=== PATIENT | male | born 1945 | race Two or more races ===

== ENCOUNTER → 2017-10-11 | Outpatient (CLI) | payer OTHER | END | disposition home or self-care (01) | LOC: RAD 15:43 | DX: R05 Cough (principal) ==

== ENCOUNTER 2018-10-28 08:22 | Outpatient (CLI) | payer OTHER | END 2018-10-28 08:34 | disposition home or self-care (01) | LOC: SONOGRAMA 08:22 | DX: N18.2 Chronic kidney disease, stage 2 (mild) (principal); I10 Essential (primary) hypertension ==

== ENCOUNTER 2020-03-17 04:40 | Emergency (ER) | payer OTHER ==
[~2020-03-17] VITALS: Ht 165.1 cm; Wt 76.2 kg
[2020-03-17] MEDS ORDERED: VERELAN180 MG (05:08)
[2020-03-17] MEDS ORDERED: DOLOGESIC 500-1 EACH PO (05:55)
== END 2020-03-17 06:02 | disposition home or self-care (01) ==
LOC: ER 04:40
DX: R51 Headache (principal)

== ENCOUNTER 2020-10-09 10:41 | Outpatient (CLI) | payer OTHER ==
[~2020-10-09 10:41] MED LIST: DOLOGESIC 500-1 EACH PO; VERELAN180 MG
== END 2020-10-09 10:48 | disposition home or self-care (01) ==
LOC: RAD 10:41
PROVIDERS: ATTEND Physical Medicine & Rehabilitation
DX: M54.5 Low back pain (principal)

== ENCOUNTER 2021-12-15 08:00 | Outpatient (CLI) | payer OTHER | END 2021-12-15 08:30 | disposition home or self-care (01) | LOC: PPH VACUNA 08:00 | PROVIDERS: ATTEND Emergency Medicine Pediatric Emergency Medicine | DX: Z23 Encounter for immunization (principal) ==

== ENCOUNTER 2022-06-21 11:00 | Outpatient (CLI) | payer OTHER | END 2022-06-21 11:10 | disposition home or self-care (01) | LOC: PPH VACUNA 11:00 | PROVIDERS: ATTEND Emergency Medicine Pediatric Emergency Medicine | DX: Z23 Encounter for immunization (principal) ==

== ENCOUNTER 2022-12-14 07:03 | Outpatient (CLI) | payer OTHER | END 2022-12-14 07:05 | disposition home or self-care (01) | LOC: NUCLEAR 07:03 | PROVIDERS: ATTEND Internal Medicine | DX: I25.118 Atherosclerotic heart disease of native coronary artery with other forms of angina pectoris (principal) | CPT/HCPCS: 78452; 93017; A9500 ==

== ENCOUNTER 2023-01-13 08:39 | Outpatient (CLI) | payer OTHER | END 2023-01-13 08:48 | disposition home or self-care (01) | LOC: SONOGRAMA 08:39 | PROVIDERS: ATTEND Specialist/Technologist, Other Nephrology | DX: R10.9 Unspecified abdominal pain (principal); N18.30 Chronic kidney disease, stage 3 unspecified; R31.9 Hematuria, unspecified ==

== ENCOUNTER 2023-07-22 13:09 | Outpatient (CLI) | payer OTHER | END 2023-07-22 13:15 | disposition home or self-care (01) | LOC: RAD 13:09 | PROVIDERS: ATTEND General Practice | DX: M15.9 Polyosteoarthritis, unspecified (principal) ==

== ENCOUNTER 2023-10-27 08:51 | Outpatient (CLI) | payer OTHER | END 2023-10-27 08:55 | disposition home or self-care (01) | LOC: SONOGRAMA 08:51 | PROVIDERS: ATTEND General Practice | DX: N18.32 Chronic kidney disease, stage 3b (principal); I10 Essential (primary) hypertension; E11.29 Type 2 diabetes mellitus with other diabetic kidney complication ==

== ENCOUNTER 2023-12-22 10:55 | Outpatient (CLI) | payer OTHER | END 2023-12-22 11:01 | disposition home or self-care (01) | LOC: SONOGRAMA 10:55 | PROVIDERS: ATTEND Physical Medicine & Rehabilitation | DX: M75.42 Impingement syndrome of left shoulder (principal) ==

== ENCOUNTER 2024-11-22 13:37 | Outpatient (CLI) | payer OTHER | END 2024-11-22 13:42 | disposition home or self-care (01) | LOC: RAD 13:37 | PROVIDERS: ATTEND Specialist | DX: I10 Essential (primary) hypertension (principal); N52.8 Other male erectile dysfunction; M20.12 Hallux valgus (acquired), left foot ==

== ENCOUNTER 2025-06-11 11:00 | Outpatient (CLI) | payer OTHER | END 2025-06-11 11:10 | disposition home or self-care (01) | LOC: TOM 11:00 | PROVIDERS: ATTEND Internal Medicine Pulmonary Disease | DX: J18.1 Lobar pneumonia, unspecified organism (principal) ==